=== PATIENT | female | born 1955 | race Caucasian/White ===

== ENCOUNTER 2023-10-13 12:33 | Inpatient (IN) | payer OTHER, SELFPAY ==
[2023-10-13] VITALS (23 sets, daily range): BP systolic 113–208; BP diastolic 72–132; BMI 33.3; BMI 33.0
[2023-10-13 09:51] LABS: Glucose - Point of Care 127 mg/dl (70-99)
--- NOTE | 2023-10-13 10:12 | ED.CVA ---
History of Present Illness
<Neel Durán Jr., PA-C - Last Filed: 10/13/23 12:15>
General
Chief Complaint: CVA/TIA Symptoms
Source: patient and family
Exam Limitations: clinical condition and altered mental status
Time Seen by Provider: 10/13/23 10:02
Nursing documentation reviewed up to this point in time: agreed with
Onset of Stroke Symptoms
Onset of symptoms known: No
Time pt last seen normal is known: Yes
Date last time pt seen normal: 10/12/23
Time last time pt seen normal: 21:00
Travel History
Have you had any contact with someone who has COVID-19?: No
Do you have any symptoms of coronavirus? Fever > 100 degrees, chills, cough, shortness of breath, sore throat, loss of taste or smell, muscle aches, or headache?: No
History of Present Illness
History of Present Illness:
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
expressive aphasia starting this morning. Last seen normal last night at 9 PM roughly 12 hours prior to arrival to the emergency department. Claims that he received a call where she was not making any sense, he immediately went to his home to get
her to the ER. He denies any additional specific symptoms otherwise. She was otherwise well last night.
Past History
<Neel Durán Jr., PA-C - Last Filed: 10/13/23 12:15>
Past History
ED Past Medical History: Other (Hypertension, migraine headaches)
Review of Systems
<Neel Durán Jr., PA-C - Last Filed: 10/13/23 12:15>
Review of Systems
Allergies reviewed?: Yes
All Other Systems: ROS reviewed and negative except as documented in HPI and ROS
Phy Exam
<Neel Durán Jr., PA-C - Last Filed: 10/13/23 12:15>
Physical Exam
Physical Exam:
GENERAL: Alert , in no apparent distress
EYE: pupils equal and reactive
NECK: Supple, no significant adenopathy.
ENT: o/p clr, mmm.
CARDIAC: Regular rate and rhythm .
LUNGS: Clear breath sounds bilaterally, no acute respiratory distress, no wheezes/rales/rhonchi
ABDOMEN: Soft, without focal tenderness, no r/g, no cvat
NEUROLOGICAL: Patient is alert but is not oriented to person place or time. Patient is not able to speak with any direct words. Patient is not able to follow specific directions on exam but she moving her upper and lower extremities with good
strength though she is not following directions with specific movements. She is not able to complete the finger-nose or [id number]. She was able to perform extraocular movements. She was able to smile but not when specifically prompted to. She
was able to puff her cheeks but also not when specifically prompted. When touching either side and was question whether she felt the same bilaterally she seemed to nod in agreement but it was unclear when she was not able to explain her thoughts.
SKIN: Warm and dry, skin intact.
MUSCULOSKELETAL: No edema, well perfused.
PSYCH: Normal and appropriate interaction.
Course
<Neel Durán Jr., PA-C - Last Filed: 10/13/23 12:15>
Orders/Labs/Results
Orders:
Orders
10/13/23 10:04
Electrocardiogram (*1) Urgent
Reason for Study: Other
Other Reason for Exam: Possible Stroke
Cardiac Monitoring- Treatment ONCE
EKG- Treatment ONCE
IV Insert/Care/Rem.- Treatment PRN
Vital Signs As Directed
Frequency: Other
Weight As Directed
Frequency: Once
Comment: ZERO STRETCHER SCALE FOR ACCURATE WEIGHT
10/13/23 10:08
CT Head W/o Cont STROKE ALERT Urgent
Comment:
Reason For Exam: expressive aphasia
CT Head/Neck Ang STROKE ALERT Urgent
Comment:
Reason For Exam: expressive aphasia
10/13/23 10:14
Complete Blood Count/With Diff Urgent
Comprehensive Metabolic Panel Urgent
Keppra (Levetiracetam) [S] Urgent
Troponin I Urgent
10/13/23 10:15
PTT Urgent
Prothrombin Time Urgent
10/13/23 10:23
EEG Routine Urgent
Reason for Exam: ? non convulsive seizure AMS
10/13/23 10:41
Aspirin 325 mg PO NOW STA
10/13/23 11:09
Levetiracetam Injectable [Keppra] 3,000 mg IV NOW STA
Lorazepam [Ativan] 2 mg IV NOW ONE
10/13/23 11:16
Lorazepam [Ativan] 2 mg .ROUTE .STK-MED ONE
10/13/23 11:19
Continuous EEG monitoring IP Routine
Reason for Study: Left sided seizures
0.9% Sodium Chloride [Nss (Preservative Free)] 1 ml IV NOW STA
Neurological Checks As Directed
Frequency: Per unit guidelines
10/13/23 11:20
MR Brain Without Contrast Routine
Comment: Presents with nonconvulsive status epilepticus
Reason For Exam: post ictal changes or new stroke left hemisphere?
Recent pill cam endoscopy?: No
10/13/23 20:00
Levetiracetam Injectable [Keppra] 1,000 mg IV Q12
Abnormal Lab Results
10/13/23 10/13/23
09:50 10:14
Hct 47.5 H %
(37.0-47.0)
MCHC 32.8 L g/dL
(33.0-37.0)
BUN 21 H mg/dl
(7-17)
Glucose 140 H mg/dl
(70-99)
Total Protein 8.4 H g/dl
(6.3-8.2)
Albumin 5.1 H g/dl
(3.5-5.0)
POC Glucose 127 H mg/dl
(70-99)
10/13/23 10:14
10/13/23 10:14
Vital Signs
Initial and Last Documented VS:
Initial Vital Signs
Temp Pulse Resp BP Pulse Ox
98.2 F 75 18 208/116 95
10/13/23 09:49 10/13/23 09:49 10/13/23 09:49 10/13/23 09:49 10/13/23 09:49
Last Documented Vital Signs
Temp Pulse Resp BP Pulse Ox
98.2 F 58 17 137/80 92
10/13/23 09:49 10/13/23 11:50 10/13/23 11:50 10/13/23 11:50 10/13/23 11:50
<Aleksandra Shahid MD - Last Filed: 10/13/23 10:32>
Orders/Labs/Results
Orders:
Orders
10/13/23 10:04
Electrocardiogram (*1) Urgent
Reason for Study: Other
Other Reason for Exam: Possible Stroke
Cardiac Monitoring- Treatment ONCE
EKG- Treatment ONCE
IV Insert/Care/Rem.- Treatment PRN
Vital Signs As Directed
Frequency: Other
Weight As Directed
Frequency: Once
Comment: ZERO STRETCHER SCALE FOR ACCURATE WEIGHT
10/13/23 10:08
CT Head W/o Cont STROKE ALERT Urgent
Comment:
Reason For Exam: expressive aphasia
CT Head/Neck Ang STROKE ALERT Urgent
Comment:
Reason For Exam: expressive aphasia
10/13/23 10:14
Complete Blood Count/With Diff Urgent
Comprehensive Metabolic Panel Urgent
Keppra (Levetiracetam) [S] Urgent
Troponin I Urgent
10/13/23 10:15
PTT Urgent
Prothrombin Time Urgent
10/13/23 10:23
EEG Routine Urgent
Reason for Exam: ? non convulsive seizure AMS
10/13/23 10:41
Aspirin 325 mg PO NOW STA
10/13/23 11:09
Levetiracetam Injectable [Keppra] 3,000 mg IV NOW STA
Lorazepam [Ativan] 2 mg IV NOW ONE
10/13/23 11:16
Lorazepam [Ativan] 2 mg .ROUTE .STK-MED ONE
10/13/23 11:19
Continuous EEG monitoring IP Routine
Reason for Study: Left sided seizures
0.9% Sodium Chloride [Nss (Preservative Free)] 1 ml IV NOW STA
Neurological Checks As Directed
Frequency: Per unit guidelines
10/13/23 11:20
MR Brain Without Contrast Routine
Comment: Presents with nonconvulsive status epilepticus
Reason For Exam: post ictal changes or new stroke left hemisphere?
Recent pill cam endoscopy?: No
10/13/23 20:00
Levetiracetam Injectable [Keppra] 1,000 mg IV Q12
Abnormal Lab Results
10/13/23 10/13/23
09:50 10:14
Hct 47.5 H %
(37.0-47.0)
MCHC 32.8 L g/dL
(33.0-37.0)
BUN 21 H mg/dl
(7-17)
Glucose 140 H mg/dl
(70-99)
Total Protein 8.4 H g/dl
(6.3-8.2)
Albumin 5.1 H g/dl
(3.5-5.0)
POC Glucose 127 H mg/dl
(70-99)
10/13/23 10:14
10/13/23 10:14
Vital Signs
Initial and Last Documented VS:
Initial Vital Signs
Temp Pulse Resp BP Pulse Ox
98.2 F 75 18 208/116 95
10/13/23 09:49 10/13/23 09:49 10/13/23 09:49 10/13/23 09:49 10/13/23 09:49
Last Documented Vital Signs
Temp Pulse Resp BP Pulse Ox
98.2 F 58 17 137/80 92
10/13/23 09:49 10/13/23 11:50 10/13/23 11:50 10/13/23 11:50 10/13/23 11:50
<Neel Durán Jr., PA-C - Last Filed: 10/13/23 12:15>
MDM/Problems Addressed
MDM/Problems Addressed:
68-year-old female presenting to the emergency department today with concerns of aphasia and difficulty with performing directed tasks. The son was contacted at 9 AM today roughly 1 hour prior to arrival with the symptoms and he brought her
immediately to the ER. Here she is having significant expressive aphasia and unable to follow specific commands but does appear to be moving extremities normally. Stroke alert was immediately called. Neurology saw the patient within a few
minutes. No acute findings on CT CT angiogram. Patient was given an aspirin otherwise will be admitted for further treatment and monitoring.
Prior to admission patient did have an EEG while still in the ER. Patient potentially being status, nonconvulsive. Patient was given Ativan as well as Keppra load with improvement. Patient will be admitted for further treatment otherwise.
<ROXANNA Kirk Jr. Last Filed: 10/13/23 12:15>
*Critical Care Note
Total Time (30-74mins, 75-104mins- exclusive of procedures): Not Applicable
ED Attending Note
<ROXANNA Kirk Jr. Last Filed: 10/13/23 12:15>
-
Portions of this chart may have been created with voice recognition software.� Occasional wrong word or��sound alike� substitutions may have occurred due to the inherent limitations of voice recognition software.
<Aleksandra Shahid MD - Last Filed: 10/13/23 10:32>
ED Attending Note
Patient seen and examined by attending physician: Yes
I performed the substantive portion of visit, reviewed & personally made and approve the management plan that is documented in note by myself or CHRISTIN.: Yes
ED Attending Note:
68-year-old female presents emergency department with noted expressive aphasia. Son who she lives with first noticed this at 9 AM. She was last known to be normal sometime last night before she went to bed. We do not have further information
regarding last known normal otherwise. Patient denies chest pain, shortness of breath. She is obviously experiencing expressive aphasia which is mild to moderate, no facial droop, no drift, motor and sensory intact. She is unable to perform
[id number] or [id number]. Stroke alert called, blood pressure noted. Neuro now at bedside. Patient is not a TNK candidate given her history of hemorrhagic stroke in the past. CTA pending.
Discharge Plan
Departure
Patient Disposition: Admit
Date of Disposition: 10/13/23
Time of Disposition: 11:12
Admit to: Telemetry
Admit to doctor: Ben
Presentation/result/management discussed w/ accepting MD/DO: Hospitalist
Patient with high blood pressure during this ER visit?: No
Condition: Good
Covid-19: Not Applicable
Discharge Problem:
Expressive aphasia
Prescriptions:
No Action
hydrochlorothiazide 25 mg tablet
25 mg PO DAILY
losartan 100 mg tablet
100 mg PO DAILY
diltiazem HCl 360 MG capsule,extended release 24hr
360 mg PO DAILY
acetaminophen 325 MG tablet
650 mg PO Q6HPRN PRN (Reason: mild pain) 0RF
Interventions
Interventions:
*Risk Screen - Suicide Last Done: 10/13/23 11:47
*General Assessment Last Done: 10/13/23 11:47
*Neglect/Abuse Screening Last Done: 10/13/23 11:47
*ED COVID-19 Vaccine History Last Done: 10/13/23 11:47
ED- Pulmonary Assessment Last Done: 10/13/23 10:54
ED- Neurological Assessment Last Done: 10/13/23 10:27
Discharge Date and Time
Print Language: TAJIK
--- NOTE | 2023-10-13 10:15 | CON.NEURO4 ---
Addendum entered and electronically signed by Marty Westbrook MD 10/13/23 12:57:
I saw and evaluated the patient I reviewed the note by Vivian Davidson and agree with the findings the following comments:
68-year-old woman with a past medical history of chronic hypertension and previous left occipital intracranial hemorrhage in June 2019 presented to the hospital with acute onset of aphasia that seem to be present for awakening this morning. She
lives with her son and seem to be last normal yesterday evening around 9 to 10 PM. They had gone to the wedding of her other son and patient did have some mild sleep deprivation and possibly some dehydration but no obvious illnesses, she has been
compliant with medications for high blood pressure. History obtained from medical chart and patient's son given patient's aphasia.
Following her left occipital intracranial hemorrhage patient has had some peripheral vision loss but otherwise made a fairly good recovery. She is not taking any antiplatelet medications or blood thinners.
No history of previous episodes of losing consciousness or seizures. No convulsive movements seen.
Blood pressure was greatly elevated to above 180 and in the low 200s systolic but spontaneously improved to the 160s in the ER.
EEG study performed in the ER was supportive of nonconvulsive status epilepticus as a cause of patient's aphasia, patient was given 2 mg IV lorazepam and 3000 mg IV levetiracetam with resolution of the epileptiform activity on EEG.
Neurologic examination shows an awake and alert patient who has a mixed expressive and receptive aphasia, she has great difficulty in general and is not able to comprehend one-step commands, spontaneous speech does show some fluency with an aspect
of receptive aphasia but also has difficulty with naming and repeating. She attempts to count to 10 out loud but has difficulty and will count backwards from 10. She does seem to laugh at my jokes and endorses appreciation of the care we are
providing.
Cranial nerve examination shows normal cranial nerves II through XII although limited pfeiffer, extraocular movements are normal no gaze preference is seen pupils are 3 mm equal round react light light bilaterally, smile symmetric tongue is midline,
no ptosis
Motor examination shows no pronator drift no abnormal movements normal muscle bulk and tone power is 5/5 for shoulder abduction bilaterally
CT head noncontrast shows encephalomalacia from the left occipital lobe previous hemorrhage there is no acute hemorrhage mass or edema or acute infarct seen
CTA of the head and neck with no significant intracranial or cervical area occlusions dissection and no aneurysms seen
EEG reviewed which showed rhythmic delta activity predominantly in the left hemisphere consistent with epileptiform activity.
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 Patient's previous history of left occipital lobe hemorrhage is
probably the ultimate etiology of the seizure activity, and given this chronic lesion does have a significant elevated risk of seizure for the future and most likely has a diagnosis of epilepsy now. New ischemic stroke is felt less likely, as is
hypertensive encephalopathy.
Previous left occipital hemorrhage is cortical-based but given her history of being on 3 antiblood pressure medications is probably due to hypertension, other most likely possibilities and etiology for the previous intracranial hemorrhage would be
amyloid angiopathy.
Recommendations
-Given 2 mg IV lorazepam and 3000 mg loading dose of levetiracetam in the ER
-Levetiracetam 1000 mg every 12 hours IV
-Continuous EEG monitoring
-Will hold off further antiplatelet therapy for the time being given the previous history of intracranial hemorrhage and epileptiform activity as a cause of her aphasia
-Check MRI of the brain without contrast, continuous EEG monitoring will take precedence for today
-Goal normotension would aim for systolic blood pressure maximum less than 180
-Neurologic checks
Time spent evaluating patient, reviewing images and previous images, reviewing EEG, assessing response to seizure medications approximately 80 minutes
Will follow
Original Note:
Documented by User: Vivian Davidson NP 10/13/23 12:39
Consultation - Neurology 4
-
CONSULTING PHYSICIAN: Inessa Westbrook MD
REFERRING PHYSICIAN: ER/Dr. Shahid
DICTATED BY: NIRALI Gautam
DATE/TIME OF REQUEST: 10/13/23
DATE/TIME OF CONSULTATION: 10/13/23
Reason for Consultation: Stroke Alert
History of Present Illness:
This is a 68-year-old female with a PMH of left occipital ICH with residual right peripheral field cut in 2019, HTN, who has presented to the hospital with report of aphasia. Patient presented to in 2019 with severe headache, vomiting,
dizziness. She was found to have a right homonymous hemianopia and CT head demonstrated a large left occipital ICH. Patient was transferred urgently to [facility], she did not require surgical intervention. She was on Keppra for a few weeks following her
ICH for seizure prophylaxis, her son reports that she never had a witnessed seizure. Patient still has a peripheral right field cut as a residual deficit but otherwise returned to her baseline.
Patient lives with her spouse and one of her sons. Her son at bedside reports that he saw her this morning and she was in her usual state between [id number] before he left for work. At 0930 she called him and he reports that kept saying that she
just 'didn't feel well.' He returned home and noted that her words were not making sense and she seemed confused, prompting him to bring her to the ER for evaluation. A stroke alert was activated in triage. Blood pressure 208/[address] head
and CTA head/neck were obtained and are negative for any acute abnormalities. MARIAN a full ROS due to significant aphasia but patient denies any headache. Patient was not a candidate for TNK/IAT due to history of ICH and no LVO. She was loaded with a
full dose aspirin due to concern for ischemic stroke. Urgent EEG was then obtained and demonstrates that the patient is in non-convulsive status epilepticus. Patient was loaded with lorazepam 2mg and levetiracetam 3000mg x1. Patient's son reports
that a sibling got this past weekend and the patient has been stressed and not sleeping well leading up to this event.
Past Medical History: Left occipital ICH 2019, HTN, HLD, migraines
Surgical History: Denies.
Family History: Reviewed and noncontributory.
Social History: Former smoker. Denies alcohol and illicit drug use.
Allergies: Amoxicillin.
Home Medications: See below.
Review of Symptoms:
Per the HPI. I am unable to obtain a complete review of systems�because of patient's inability to provide history.
Physical Exam:
The patient is afebrile, abdomen is nondistended, breathing is unlabored, skin is warm and dry, LLE +1 pedal edema.
NIH Stroke Scale:
I performed the NIH stroke scale on the patient on 10/13/23 at 1030. The patient scored 5 points on the NIH stroke scale assessment, which were assigned as follows: See below.
Neurologic Examination:
The patient is awake and alert. MARIAN oriented due to global aphasia. She is able to mimic commands, can only follow a rare verbal command. There is global aphasia, word salad. No dysarthria. On cranial nerve assessment, pupils are 3 mm bilateral,
round and reactive to light and accommodation. Visual pfeiffer are somewhat reduced on the right side, challenging to assess due to aphasia. Extraocular movements are intact. Facial sensations are intact and bilaterally symmetrical, there is no facial
asymmetry. Hearing is intact bilaterally to normal conversation volume. Tongue palate and uvula are midline. Motor strengths are 5/5 bilateral upper and lower extremities on medical research [place] scale. There is no drift or involuntary movement
noted. Deep tendon reflexes are 1+ bilateral upper and lower extremities and Babinski is absent bilaterally. MARIAN sensation and DBS, and coordination due to aphasia.
Lab Results: See below.
Neuro Imaging:
1. CT Head 10/13/23: No acute intracranial abnormality. Region of encephalomalacia within the posterior left parietal lobe with associated ex vacuo dilatation the posterior horn of the lateral ventricle. Moderate nonspecific white matter disease.
2. CTA Head /Neck 10/13/23: No large vessel occlusions or dissections appreciated. Proximal segments of the left vertebral artery not visualized, obscured by contrast artifact. The distal left vertebral artery appears patent with the basilar artery
supplied by the dominant right vertebral artery. Minimal calcified plaque within both carotid bulb/proximal ICAs.
Differentials for the patient's presentation include:
1. Non-convulsive status-epilepticus likely producing speech change in a patient with a large scar on her brain from previous ICH.
2. Low concern for left hemisphere ischemic stroke producing aphasia but possible.
3. Hypertensive encephalopathy possibly contributing to symptoms.
4. CT head negative for hemorrhage.
Patient has the following risk factors for their symptoms: Hx large ICH, recent stress/sleep deprivation, HTN, HLD, migraines
IV Tenecteplase/IAT candidacy: Not a candidate due to hx ICH, no LVO for IAT.
Recommendations:
-Continuous EEG ordered.
-Continue levetiracetam 1000mg IV q12hrs.
-Discontinue aspirin.
-MRI brain noncontrast pending.
-Neurological checks per unit guidelines.
-Seizure precautions.
-Checking blood work for metabolic abnormalities.
-DVT prophylaxis.
-Will follow.
Discussed patient care with: Dr. Westbrook, the patient, patient's son
Vital Signs and Labs
-
Vital Signs and Labs:
Vital Signs
Temp Pulse Resp BP Pulse Ox
98.2 F 70 10 188/92 97
10/13/23 09:49 10/13/23 10:00 10/13/23 10:00 10/13/23 10:00 10/13/23 10:00
Medications
-
Home Medications
�Medication �Instructions �Recorded
acetaminophen 325 mg tablet 650 mg (2 x 325 mg) PO Q6HPRN PRN 06/29/19
mild pain
diltiazem HCl 360 mg 360 mg PO DAILY ##30 06/29/19
capsule,extended release 24 hr
hydrochlorothiazide 25 mg tablet 25 mg PO DAILY 10/13/23
losartan 100 mg tablet 100 mg PO DAILY 10/13/23
NIH Stroke Score
Subsequent NIH Scale
Date of Subsequent NIH Scale: 10/13/23
Time of Subsequent NIH Scale: 10:30
NIH Stroke Score
Level of Consciousness: 0 - Alert
LOC Questions: 2-Neither correct
LOC Commands: 0-Performs both correctly
Best Horizontal Gaze: 0-Normal
Visual Pfeiffer: 1=Partial hemianopia
Facial Palsy: 0=Normal, symmetrical
Motor - Right Arm: 0=No drift 10 seconds
Motor - Left Arm: 0=No drift 10 seconds
Motor - Right Le-No drift 5 seconds
Motor - Left Le-No drift 5 seconds
Limb Ataxia: 0-Absent
Sensation: 0-Normal
Best Language: 2-Severe aphasia
Dysarthria: 0-Normal
Extinction and Inattention: 0-No abnormality
Total Score:: 5
Alteplase Contraindication
Inclusion and Exclusion criteria reviewed: Yes
Reasons for NON-Tx with Thrombolytics ABSOLUTE Exclusions: History of ICH
IAT Contraindications: Imaging doesn't show large vessel occlusion as cause of stroke

Documented by User: Marty Westbrook MD 10/13/23 12:45
NIH Stroke Score
NIH Stroke Score
Total Score:: 5
[2023-10-13 10:27] LABS: % Basophils 0.4 % (0-2); % Eosinophils 0.5 % (0-6); % Immature Granulocytes 0.3 % (0-0.5); % Lymphocytes 24.1 % (20.5-51.1); % Monocytes 6.3 % (1.7-9.3); % Neutrophils 68.4 % (42.2-75.2); Absolute Lymphocytes 1.8 10^3/uL (1.2-3.4); Absolute Monocytes 0.5 10^3/uL (0.1-0.6); Absolute Neutrophils 5.2 10^3/uL (1.4-6.5); Hematocrit 47.5 % (37.0-47.0); Hemoglobin 15.6 g/dL (12.0-16.0); Mean Corp Hgb Conc. 32.8 g/dL (33.0-37.0); Mean Corpuscular Hgb 29.6 pg (27.0-31.0); Mean Corpuscular Volume 90.1 fL (81.0-99.0); Mean Platelet Volume 9.7 fL (7.4-10.4); Nucleated Red Blood Cells % 0 %; Platelet Count 263 10^3/uL (130-400); Red Blood Cell Count 5.27 10^6/uL (4.20-5.40); Red Cell Dist. Width 13.2 % (11.5-14.5); White Blood Cell Count 7.6 10^3/uL (4.8-10.8)
[2023-10-13 10:44] LABS: ALT (SGPT) 22 U/L (0-35); AST (SGOT) 26 U/L (14-36); Albumin 5.1 g/dl (3.5-5.0); Alkaline Phosphatase 88 U/L (38-126); Blood Urea Nitrogen 21 mg/dl (7-17); Calcium 9.8 mg/dl (8.4-10.2); Carbon Dioxide 24 mmol/L (22-30); Chloride 103 mmol/L (98-107); Estimated Creatinine Clearance 112 ml/min; Glucose 140 mg/dl (70-99); Potassium 3.8 mmol/L (3.5-5.1); Sodium 141 mmol/L (135-145); Total Bilirubin 0.8 mg/dl (0.2-1.3); Total Protein 8.4 g/dl (6.3-8.2); eGFR > 60.00
[2023-10-13 10:51] LABS: Troponin I < 0.012 ng/ml
[2023-10-13 10:53] LABS: INR 1.07; PT 13.8 Sec (11.4-14.6)
[2023-10-13 10:54] LABS: APTT 29.8 Sec (23.4-35.0)
--- NOTE | 2023-10-13 11:17 | HPS.HSE ---
Family Physician
-
Family Physician:
Chief Complaint
-
Expressive aphasia
History of Present Illness
68-year-old with history of IC bleed presents to the ER with expressive aphasia. Son noted this. She was seen around 9 PM last night with no abnormalities. She called her but was not making much of a sense. Which prompted him to send her to the
ER
Medical History
Past Medical History
Past Medical History: Reports Other
Additional Past Medical History:
Migraines, history of IC bleed, hypertension
Past Surgical History: Reports None
Social History
Tobacco: Non-smoker
Alcohol: None
Drug: None
Personal: Single
Employment: Retired
Family History
Family History: CAD (mom) and Cancer (Leukemia-dad)
Allergies / Home Medications
Allergies reflects when Allergies were last updated in [facility].
Home Medications with original date entered in [facility]
Allergy/Medication List:
Allergies
Allergy/AdvReac Type Severity Reaction Status Date / Time
amoxicillin Allergy Mild Rash Verified 10/13/23 09:48
Home Medications
acetaminophen 325 mg tablet 650 mg (2 x 325 mg) PO Q6HPRN PRN mild pain 06/29/19
diltiazem HCl 360 mg capsule,extended release 24 hr 360 mg PO DAILY Blood Pressure 10/13/23
hydrochlorothiazide 25 mg tablet 25 mg PO DAILY Blood Pressure 10/13/23
losartan 100 mg tablet 100 mg PO DAILY Blood Pressure 10/13/23
Review of Systems
-
A 12 point ROS was completed and negative except as noted: Yes
Respiratory: Denies Trouble Breathing
Cardiac: Denies Chest Pain
Neurological: Denies Headache
Physical Exam
Vital Signs
Vital Signs
Temp Pulse Resp BP Pulse Ox
98.2 F 82 20 167/95 92
10/13/23 09:49 06/10/24 10:45 10/13/23 10:45 10/13/23 10:32 10/13/23 10:45
Physical Exam
General: Comfortable
Respiratory: Clear
Cardiac: S1/S2 and Regular Rhythm
GI: Soft and Normal Bowel Sounds
Skin: Warm
Neuro: Awake, Alert, No Motor Deficits, Cranial Nerves Intact and Other (expressive aphasia)
Laboratory Results
-
10/13/23 10:14
10/13/23 10:14
Laboratory Results
PT 13.8 Sec (11.4-14.6) 10/13/23 10:15
INR 1.07 10/13/23 10:15
APTT 29.8 Sec (23.4-35.0) 10/13/23 10:15
Total Bilirubin 0.8 mg/dl (0.2-1.3) 10/13/23 10:14
AST 26 U/L (14-36) 10/13/23 10:14
ALT 22 U/L (0-35) 10/13/23 10:14
Alkaline Phosphatase 88 U/L (38-126) 10/13/23 10:14
Troponin I < 0.012 ng/ml 10/13/23 10:14
Data Reviewed
-
CT Scan: Report Reviewed by me (CTA-no large vessel occlusion. Proximal segments of the left vertebral artery not visualized. Distal left vertebral artery appears patent with the basilar artery supplied by the dominant right vertebral artery.
Minimal calcific plaques both carotid bulbs and proximal ICA)
Medical Tests (Nuc Med, Echo, EKG etc): Image Personally Visualized and interpreted (EKG-sinus rhythm, left axis deviation, incomplete left bundle branch block)
Impression/Plan
-
IMPRESSION/PLAN:
# Expressive aphasia
Appreciate neurology input
EEG showed nonconvulsive status epilepticus
Patient given Ativan and also started on Keppra after loading Keppra
Continue Keppra 1 g twice daily
MRI of the brain without contrast per neurology
Admit to IMU for monitoring
Neurochecks
# Hypertension-on losartan/hydrochlorothiazide, diltiazem as outpatient
Permissive hypertension up to 180 mmHg per discussion with neurology
Continue above medicines
# History of IC bleed-and hypertensive reasons per son at bedside
Was on Keppra for 1 year and then stopped by neurology
This was in 2019
# Hyperglycemia-check hemoglobin A1c
# DVT prophylaxis-subcutaneous heparin
Full code
Discussed with ER staff
Discussed with neurology at bedside
Discussed with patient's son at bedside
[2023-10-13] MEDS: KEPPRA 3000 MG IV (11:28)
[2023-10-13] MEDS: ATIVAN 2 MG IV (11:29)
[2023-10-13] MEDS: NSS (PRESERVATIVE FREE) 1 ML IV (11:32)
[2023-10-13 14:42] LABS: Glycohemoglobin (HgbA1c) 5.9 % (4.0-5.6)
--- NOTE | 2023-10-13 18:04 | PTCARENOTE ---
Received patient into room 3345 from the ED. She is aaox3, able to have oriented conversation. She still has slight expressive aphasia but much better than in the ED per nurse. Her neuro exam is unremarkable, see flowsheet. EEG hooked back up by
tech. at bedside. She has no complaints at this time. Assessment, care and VS as charted.
[2023-10-13] MEDS: KEPPRA 1000 MG IV (20:46)
[2023-10-13] MEDS: HEPARIN 5000 UNITS SC (20:46)
[2023-10-13] MEDS: SENOKOT 8.59999999999999964 MG PO (20:47)
[2023-10-14] VITALS (15 sets, daily range): BP systolic 116–168; BP diastolic 71–110; PULSE 80–82; O2SAT 96; BMI 30.2
[2023-10-14 05:22] LABS: Hematocrit 43.7 % (37.0-47.0); Mean Corp Hgb Conc. 34.3 g/dL (33.0-37.0); Mean Corpuscular Hgb 29.7 pg (27.0-31.0); Mean Corpuscular Volume 86.5 fL (81.0-99.0); Mean Platelet Volume 9.2 fL (7.4-10.4); Platelet Count 246 10^3/uL (130-400); Red Blood Cell Count 5.05 10^6/uL (4.20-5.40); Red Cell Dist. Width 13.2 % (11.5-14.5); White Blood Cell Count 4.7 10^3/uL (4.8-10.8)
--- NOTE | 2023-10-14 05:42 | PTCARENOTE ---
Received pt at change of shift. Neuro checks performed Qshift. EEG monitoring in place throughout the night. Pt utilizing BSC with a standby assist; ringing appropriately. Minimal expressive aphasia noted. Pt denies any receptive aphasia. Pt
drowsy but able to hold a conversation. Resting in bed with call washburn in reach.
[2023-10-14 05:48] LABS: Blood Urea Nitrogen 15 mg/dl (7-17); Calcium 9.6 mg/dl (8.4-10.2); Carbon Dioxide 24 mmol/L (22-30); Chloride 106 mmol/L (98-107); Estimated Creatinine Clearance 107 ml/min; Glucose 100 mg/dl (70-99); Magnesium 2.1 mg/dl (1.6-2.3); Potassium 3.8 mmol/L (3.5-5.1); Sodium 139 mmol/L (135-145); eGFR > 60.00
[2023-10-14 06:36] LABS: Vitamin B12 252 pg/ml (239-931)
--- NOTE | 2023-10-14 07:36 | EEG.RPT ---
Electroencephalogram Report
Recording
Date of EE10/13/23
Length of EEG recordin minutes
Done with Video Recording: Yes
Patient Status: Inpatient
Recording Conditions: Awake and Drowsy
Hyperventilation Performed: No
Photic Stimulation Performed: Yes
Hand Dominance: Unknown
Report
LESS THAN 1 HOUR EEG REPORT
EEG Interpretation
Severely abnormal EEG notable for asymmetry and continuous epileptiform changes in the left hemisphere
CLINICAL CORRELATION:
In the appropriate clinical context this EEG may be compatible with non-convulsive status epilepticus.
Immediate clinical correlation required.
METHODS:
A 21 channel digitized electroencephalogram (EEG) was performed at the bedside in the intensive care unit. The 10/20 international system of electrode placement was used. ECG was monitored. Persyst quantitative analysis was performed. Study
lasted 21 minutes.
ELECTROENCEPHALOGRAPHER IMPRESSION(S):
Quality
Good
Background, predominantly alpha and beta
Amplitude: Medium
Anterior-posterior gradient: Fair
Asymmetry: Left hemisphere markedly asymmetric with rhythmic delta frequency at 2-3 Hz
Photic stimulation
Not performed
Hyperventilation
Not performed
Sleep
Not demonstrated
Abnormal EEG activity
Continuous left hemisphere rhythmic delta activity consistent with epileptiform dishcarges
--- NOTE | 2023-10-14 07:40 | EEGC.RPT ---
Continuous EEG Report
Recording
Start Date of Data Reviewed: 10/13/23
Start Time of Data Reviewed: 11:25
End Date of Data Reviewed: 10/14/23
End Time of Data Reviewed: 07:00
Type of EEG: Continuous
Study Sequence: Initiation of Study
Report
24 HOUR CONTINUOUS EEG REPORT
24 HOUR CONTINUOUS EEG INTERPRETATION:
Beginning of the study showing left hemisphere rhythmic discharges suggestive of non-convulsive status epilepticus, these abort with 2 mg of Lorazepam
CLINICAL CORRELATION:
This study was supportive of left hemispheric non-convulsive status epilepticus which aborted with administration of Lorazepam.
Clinical correlation is advised.
METHODS:
A 21 channel digitized electroencephalogram (EEG) was performed at the bedside in the intensive care unit. The 10/20 international system of electrode placement was used. ECG was monitored. Persyst quantitative analysis was performed. Study lasted
approximately 8 hours 35 minutes
ELECTROENCEPHALOGRAPHER IMPRESSION(S):
Quality
Good
Background, predominantly alpha and beta
Amplitude: Medium
Anterior-posterior gradient: Fair
Asymmetry: Left hemisphere markedly asymmetric with rhythmic delta frequency at 2-3 Hz
Photic stimulation
Not performed
Hyperventilation
Not performed
Sleep
Not demonstrated
Abnormal EEG activity
Continuous left hemisphere rhythmic delta activity consistent with epileptiform discharges, these discharges disappear approximately 1 minute after 2 mg IV Lorazepam is administered at 11:33 AM
[2023-10-14] MEDS: CARDIZEM CD 360 MG PO (08:12)
[2023-10-14] MEDS: MIRALAX 17 GRAMS PO (08:13)
[2023-10-14] MEDS: ORETIC 25 MG PO (08:13)
[2023-10-14] MEDS: KEPPRA 1000 MG IV ×2 (08:13→19:59)
[2023-10-14] MEDS: FLUSH (NSS) 1 FLUSH IV (08:13)
[2023-10-14] MEDS: HEPARIN 5000 UNITS SC ×2 (08:14→19:59)
[2023-10-14] MEDS: TYLENOL 650 MG PO ×2 (08:40→16:16)
[2023-10-14] MEDS: SENOKOT PO ×2 (08:50→20:06)
[2023-10-14] MEDS: COZAAR 100 MG PO (09:01)
--- NOTE | 2023-10-14 09:19 | W.PN.HOSP.TC ---
Addendum entered and electronically signed by Angeles Jeong MD 10/14/23 09:25:
No SZ on EEG overnight
Original Note:
Today's Communication/Plan
-
Transfer to tele
MRI today
PT OT
Discharge planning will be per neuro recommendations
Assessment / Plan
Assessment / Plan
feels well.
She Still feels speech is slightly abnormal.
But pt is AAO3
No Cranial nerve deficits or motor deficits
CVS: S1-S2 normal
Chest: CTA B/L
Abdomen: Soft, NT / Bowel sounds present
Extremities: No edema
# Expressive aphasia
Appreciate neurology input
EEG showed nonconvulsive status epilepticus
Patient given Ativan and also started on Keppra after loading Keppra
Continue Keppra 1 g twice daily
MRI of the brain without contrast today
Neurochecks
She looks much better
# Hypertension-on losartan/hydrochlorothiazide, diltiazem as outpatient
Continue above medicines
# History of IC bleed-and hypertensive reasons per son at bedside
Was on Keppra for 1 year and then stopped by neurology
This was in 2019
# Hyperglycemia-Hemoglobin A1c 5.9
# DVT prophylaxis-subcutaneous heparin
# Full code
D/W at bed side
D/W RN at bed side
Anticipated Discharge: Within 24 hours
Subjective/Interval History
-
Date of Service: October 14, 2023
Objective Data
-
Labs:
Laboratory Results
10/14/23 10/14/23
05:13 05:14
WBC 4.7 L
Hgb 15.0
Hct 43.7
Plt Count 246
Sodium 139
Potassium 3.8
Chloride 106
Carbon Dioxide 24
BUN 15
Creatinine 0.6
Glucose 100 H
Calcium 9.6
Vital Signs:
Vital Signs
Temp Pulse Resp BP Pulse Ox
97.8 F 92 20 145/96 93
10/14/23 03:59 10/14/23 07:10 10/14/23 07:10 10/14/23 07:10 10/14/23 07:00
[2023-10-14] MEDS: NSS (PRESERVATIVE FREE) 0.25 ML IV (09:28)
[2023-10-14] MEDS: ATIVAN 0.5 MG IV (09:29)
--- NOTE | 2023-10-14 09:36 | W.PN.NEURO.1 ---
Addendum entered and electronically signed by Power Luis MD 10/14/23 15:39:
Patient will be reported to [facility]. This was reviewed with her..
Original Note:
Today's Communication / Plan
-
Levetiracetam 1000 mg every 12 hours, lifelong
Goal normotension would aim for systolic blood pressure maximum less than 180
Consider repeated EEG if patient has decline in cognition again
Neuro Assessment/Plan
Assessment
CT head noncontrast shows encephalomalacia from the left occipital lobe previous hemorrhage there is no acute hemorrhage mass or edema or acute infarct seen
CTA of the head and neck with no significant intracranial or cervical area occlusions dissection and no aneurysms seen
EEG reviewed which showed rhythmic delta activity predominantly in the left hemisphere consistent with epileptiform activity.
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
Patient's previous history of left occipital lobe hemorrhage is probably the ultimate etiology of the seizure activity, and given this chronic lesion does have a significant elevated risk of seizure for the future and most likely has a diagnosis of
epilepsy now.
Previous left occipital hemorrhage is cortical-based but given her history of being on 3 antihypertensive pressure medications is probably due to hypertension
Plan
Recommendations
Levetiracetam 1000 mg every 12 hours, lifelong
Goal normotension would aim for systolic blood pressure maximum less than 180
Consider repeated EEG if patient has decline in cognition again
Will follow as outpatient
Subjective/Objective
Subjective Data
Date of Service: October 14, 2023
Confusion remains, although patient feels approximately 90% improved.
Objective Data
Vital Signs
Temp Pulse Resp BP Pulse Ox
36.6 C 72 13 168/110 92
10/14/23 03:59 10/14/23 09:00 10/14/23 09:00 10/14/23 08:00 10/14/23 09:00
Lab Results
10/14/23 05:14
10/14/23 05:13
PT 13.8 Sec (11.4-14.6) 10/13/23 10:15
INR 1.07 10/13/23 10:15
APTT 29.8 Sec (23.4-35.0) 10/13/23 10:15
Sodium 139 mmol/L (135-145) 10/14/23 05:13
Potassium 3.8 mmol/L (3.5-5.1) 10/14/23 05:13
BUN 15 mg/dl (7-17) 10/14/23 05:13
Glucose 100 mg/dl (70-99) H 10/14/23 05:13
Calcium 9.6 mg/dl (8.4-10.2) 10/14/23 05:13
Vitamin B12 252 pg/ml (239-931) 10/14/23 05:13
Patient Allergies
amoxicillin Allergy (Mild, Verified 10/13/23 09:48)
Rash
Review of Systems
-
History Source: Patient
All other systems: Reviewed and negative
Neuro: Headache; Negative Dizzy
Physical Exam
-
General: No Apparent Distress and Appears Stated Age
Eyes: Round OU, Brady Conjunctivae and No Ptosis
HEENT: Anicteric and Moist Mucous Membranes
Neck: Full Range of Motion
Respiratory: No Dyspnea
Cardiac: No JVD
Skin: Unremarkable
Extremities: No Clubbing, No Cyanosis and No Edema
Psych: Intact Judgement/Insight
Extended Neurological Exam
Mood & Affect: Mood Unremarkable and Affect Unremarkable
Attention Span & Concentration: Awake, Alert and Interactive
Memory: Unremarkable
Tremor: Hand Tremor Absent and Head Tremor Absent
Speech: Quality Unremarkable and Quantity Unremarkable
Cranial Nerve II: Left Eye: Pupillary Size Unremarkable and Visual Pfeiffer Reduced (On the right)
Cranial Nerve II: Right Eye: Pupillary Size Unremarkable and Visual Pfeiffer Reduced (On the right)
Cranial Nerves III, IV, : Extraocular Movement: Extraocular Movement Full in all Directions
Cranial Nerve VII: Facial Symmetry: Normal Facial Symmetry
Cranial Nerve VIII: Hearing: Unremarkable Hearing to Normal Conversational Volume
Muscle Strength, Overall: Spontaneously Moves (All extremities)
Muscle Bulk & Tone: Bulk Unremarkable and Tone Unremarkable
Touch Sensation: Unremarkable
Coordination: Reaches for Objects without Difficulty
Data Reviewed
-
EEG: Report Reviewed
Labs: Report Reviewed
Reviewed with: Physician, Nurse, Patient and Family
Old Records: Summarized
--- NOTE | 2023-10-14 10:26 | PTCARENOTE ---
Patient off unit having MRI of brain.
--- NOTE | 2023-10-14 10:54 | PTCARENOTE ---
Patient complaining of left sided headache rating 4/10. Medicated patient with tylenol with adequate results.
[2023-10-14 12:10] LABS: Keppra (Levetiracetam) <2 ug/mL (10-40)
--- NOTE | 2023-10-14 15:45 | PTCARENOTE ---
Report given to Charmaine RESENDIZ. Patient transferred to [address] [place] [address] bed 2. All belongings with the patient.
[2023-10-14] MEDS: VITAMIN B-12 1000 MCG PO (16:16)
[2023-10-15 03:15] VITALS: BP 131/83
[2023-10-15 07:00] VITALS: BP 141/85
[2023-10-15] MEDS: MIRALAX 17 GRAMS PO (07:54)
[2023-10-15] MEDS: KEPPRA 1000 MG IV (07:56)
[2023-10-15] MEDS: HEPARIN 5000 UNITS SC (07:57)
[2023-10-15] MEDS: VITAMIN B-12 1000 MCG PO (07:57)
[2023-10-15] MEDS: ORETIC 25 MG PO (07:57)
[2023-10-15] MEDS: COZAAR 100 MG PO (07:57)
[2023-10-15] MEDS: CARDIZEM CD 360 MG PO (07:57)
[2023-10-15] MEDS: SENOKOT PO ×2 (07:57→08:02)
[2023-10-15 11:00] VITALS: BP 145/88
--- NOTE | 2023-10-15 11:06 | W.PN.HOSP.TC ---
Today's Communication/Plan
-
dc
Assessment / Plan
Assessment / Plan
# Expressive aphasia suspected to nonconvulsive status epilepticus which is now resolved.
EEG showed nonconvulsive status epilepticus
Patient given Ativan and also started on Keppra after loading Keppra
Continue Keppra 1 g twice daily
MRI of the brain without contrast Shows no evidence of acute infarct but chronic changes noted
patient back to his usual self without seizures. Discussed with neurology okay for discharge on Keppra. Patient advised not to drive. She is also aware neurology would inform [employer]. She was told that she needs at least 6 months of treatments
prior to resumption of driving. She has to follow-up with the neurology and [place] doctor. This was discussed with present at bedside
# Hypertension-on losartan/hydrochlorothiazide, diltiazem as outpatient
Continue above medicines
# History of IC bleed-and hypertensive reasons per son at bedside
Was on Keppra for 1 year and then stopped by neurology
This was in 2019
# Hyperglycemia-Hemoglobin A1c 5.9
# DVT prophylaxis-subcutaneous heparin
# Full code
D/W at bed side
DC home today
Total time of dc 32 min
Anticipated Discharge: Today
Subjective/Interval History
-
Date of Service: October 15, 2023
No further seizures. She says she is back to her usual self which is corroborated by at bedside.
Objective Data
-
Vital Signs:
Vital Signs
Temp Pulse Resp BP Pulse Ox
97.7 F 62 16 145/88 97
10/15/23 11:00 10/15/23 11:00 10/15/23 11:00 10/15/23 11:00 10/15/23 11:00
I&O
10/14/23 10/15/23 10/16/23
06:59 06:59 06:59
Intake Total 960 / 960
Balance 960 96
Review of Systems
-
Respiratory: Denies Trouble Breathing
Cardiac: Denies Chest Pain
Abdomen/GI: Denies Nausea or Vomiting
Neuro: Denies Dizzy, Headache, Weakness, Numbness, Ataxia, Tremors or Seizures
Physical Exam
-
General: Comfortable
Respiratory: Non Labored Respirations; Negative Accessory Resp Muscle Use
Cardiac: Regular Rhythm and S1/S2
Neuro: AO x 3; Negative No Motor Deficits, Tremors, Slurred Speech or Facial Droop
Psych: Calm; Negative Confused or Agitated
--- NOTE | 2023-10-15 11:13 | W.DS.TRANS ---
DC Summary - Processing Supervisor
-
Discharge Instructions:
Discharge Diagnosis/Procedures expressive aphasia from nonconvulsive status
epilepticus without evidence of acute stroke
Diet 2 Gram Sodium
Activity As tolerated
Driving Restrictions No driving
Instructions:
Stand-Alone Forms:
Changes to Home Medications: Yes
Discharge Medications:
DC Medications w/original date entered in [facility]
acetaminophen 325 mg tablet 650 mg (2 x 325 mg) PO Q6HPRN PRN mild pain 06/29/19
diltiazem HCl 360 mg capsule,extended release 24 hr 360 mg PO DAILY Blood Pressure 10/13/23
hydrochlorothiazide 25 mg tablet 25 mg PO DAILY Blood Pressure 10/13/23
losartan 100 mg tablet 100 mg PO DAILY Blood Pressure 10/13/23
levetiracetam 1,000 mg tablet (Keppra) 1,000 mg PO BID #60 tabs 10/15/23
Home Medication Changes
new medication-Keppra
Pending Results: No
--- NOTE | 2023-10-15 13:16 | CM ---
Alert awake oriented patient who lives with her Larry who lives in a 2 story home with 1 step to enter and 12 steps to bed and bathroom. She is independent in driving and in all activities of daily living.She was offered VN she declined
need.No Adaptive devices.
No VN hx / No SNF history
Pharmacy [facility] [place]
PCP DR Dunlap
PLAN Home Declined VN
--- NOTE | 2023-10-15 17:36 | W.DCSUMMARY ---
Discharge Summary
Discharge Data
Date of Admission: 10/13/23
Date of Discharge: 10/15/23
-
Pending Results: No
Hospital Course
Primary diagnosis:
Expressive aphasia secondary to new onset of nonconvulsive status epilepticus
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
Small chronic infarct in the paramidline right parietal-occipital lobe.
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
Secondary diagnosis:
History of intracerebral bleed
Hypertension primary
Hospital course:
Patient with above history presented with new onset of expressive aphasia, on further evaluation noted to have nonconvulsive status epilepticus on the EEG which was aborted with benzodiazepines. MRI of the brain showed no evidence of acute infarct
but chronic changes as above which might be precipitating seizure. She recently was attending a wedding unclear if there is any sleep disturbances or stress.
In view of above findings and nonconvulsive status epilepticus she was started on Keppra which she will continue. Advised not to drive and [employer] will be notified by neurology.
There was no recurrence of seizures further on in the hospital.
Consultants on board:
Neurology-Marty Aragon
Discharge Plan
-
Patient Disposition: Home (Routine Discharge)
Discharge Diagnosis/Procedures: expressive aphasia from nonconvulsive status epilepticus without evidence of acute stroke
Diet: 2 Gram Sodium
Activity: As tolerated
Driving Restrictions: No driving
Referrals:
Marty Westbrook MD [Active] - in four to six weeks
Marty Dunlap DO [Family Provider] - in less than 1 week
Prescriptions:
New
levetiracetam [Keppra] 1,000 mg tablet
1,000 mg PO BID Qty: 60 0RF
Continued
hydrochlorothiazide 25 mg tablet
25 mg PO DAILY
losartan 100 mg tablet
100 mg PO DAILY
diltiazem HCl 360 MG capsule,extended release 24hr
360 mg PO DAILY
acetaminophen 325 MG tablet
650 mg PO Q6HPRN PRN (Reason: mild pain) 0RF
Discharge Orders:
Discharge Patient (As Directed); Ordered 10/15/23
Ordered By: Cole Contreras
Discharge Date and Time
Discharge Date/Time: 10/15/23 12:10
Print Language: GABONESE
[2023-10-16 13:58] LABS: Lyme Antibody Screen, EIA Negative (Negative)
== END 2023-10-15 12:10 | disposition home or self-care (01) | DRG 101 ==
LOC: 3 WEST ACU 12:33
PROVIDERS: Physician Assistant; ADMITTING PHYSICIAN Hospitalist; ATTENDING PHYSICIAN Internal Medicine; CONSULT PHYSICIAN Student in an Organized Health Care Education/Training Program; EMERGENCY PHYSICIAN Emergency Medicine; FAMILY PHYSICIAN Family Medicine
DX: G40.901 Epilepsy, unspecified, not intractable, with status epilepticus (principal); R47.01 Aphasia; I67.81 Acute cerebrovascular insufficiency; G43.909 Migraine, unspecified, not intractable, without status migrainosus; I10 Essential (primary) hypertension; R73.9 Hyperglycemia, unspecified; H53.461 Homonymous bilateral field defects, right side; E78.5 Hyperlipidemia, unspecified; G93.89 Other specified disorders of brain; Z87.891 Personal history of nicotine dependence; Z86.73 Personal history of transient ischemic attack (TIA), and cerebral infarction without residual deficits; Z88.0 Allergy status to penicillin
CPT/HCPCS: 70450; 70496; 70498; 70551; 80048; 80053; 80177; 82607; 82962; 83036; 83735; 84484; 85025; 85027; 85610; 85730; 86618; 92507; 92523; 93005; 95714; 95816; 96374; 96375; 97162; 97166; 99285; Q9967

== ENCOUNTER → 2023-11-26 10:50 | Outpatient (REF) | payer OTHER, SELFPAY ==
--- NOTE | 2023-11-26 12:50 | EEG.RPT ---
Addendum entered and electronically signed by Marty Westbrook MD 11/26/23 13:05:
Addendum: On background, there is some focal slowing in the left occipital area at P3/O1 likely due to focal structural abnormality in this area, most likely due to the left occipital/parietal chronic ischemic infarction seen on brain imaging.
Original Note:
Electroencephalogram Report
Recording
Date of EE11/26/23
Type of EEG: Routine
Length of EEG recordin hour 4 minutes
Patient Status: Outpatient
Recording Conditions: Awake and Drowsy
Hyperventilation Performed: Yes
Photic Stimulation Performed: Yes
Report
GREATER THAN 1 HOUR EEG REPORT
GREATER THAN 1 HOUR EEG INTERPRETATION:
Unremarkable EEG for age
CLINICAL CORRELATION:
A normal EEG does not rule out a diagnosis of epilepsy.� If clinical suspicion for seizure persists, a prolonged recording may be warranted.
Clinical correlation is advised.
METHODS:
A 21 channel digitized electroencephalogram (EEG) was performed using the 10/20 international system of electrode placement and one-lead of ECG recorded. Duration 1 hour 4 minutes
ELECTROENCEPHALOGRAPHER IMPRESSION(S):
Quality of study
Good
Background
Normal medium amplitude of theta and alpha frequencies in awake and drowsy stats
Normal posterior dominant rhythm of 9 hz seen which attenuates with eye opeing
There were no significant asymmetries of background activity noted.
Sleep
Drowsiness present
Photic Stimulation
No activation
Hyperventilation
No activation
ECG
Normal sinus rhythm
Abnormalities
No significant abnormalities seen, no seizures or interictal epileptiform dishcarges seen
== END ==
LOC: EEG 10:50
PROVIDERS: ATTENDING PHYSICIAN Psychiatry & Neurology Neurology; FAMILY PHYSICIAN Family Medicine
DX: R56.9 Unspecified convulsions (principal)
CPT/HCPCS: 95813

== ENCOUNTER 2024-07-09 06:31 | Emergency (ER) | payer OTHER, SELFPAY ==
[2024-07-09 06:36] VITALS: BP 189/118
[2024-07-09 06:37] VITALS: BP 181/121
[2024-07-09 06:47] VITALS: BP 145/91
[2024-07-09 06:53] LABS: Glucose - Point of Care 125 mg/dl (70-99)
[2024-07-09 07:00] VITALS: BP 163/105
[2024-07-09 07:08] LABS: % Basophils 0.3 % (0-2); % Eosinophils 0.6 % (0-6); % Immature Granulocytes 0.2 % (0-0.5); % Lymphocytes 33.3 % (20.5-51.1); % Monocytes 8.3 % (1.7-9.3); % Neutrophils 57.3 % (42.2-75.2); Absolute Lymphocytes 2.1 10^3/uL (1.2-3.4); Absolute Monocytes 0.5 10^3/uL (0.1-0.6); Absolute Neutrophils 3.6 10^3/uL (1.4-6.5); Hemoglobin 15.4 g/dL (12.0-16.0); Mean Corp Hgb Conc. 33.5 g/dL (33.0-37.0); Mean Corpuscular Volume 89.7 fL (81.0-99.0); Mean Platelet Volume 9.1 fL (7.4-10.4); Nucleated Red Blood Cells % 0 %; Platelet Count 263 10^3/uL (130-400); Red Blood Cell Count 5.13 10^6/uL (4.20-5.40); Red Cell Dist. Width 12.9 % (11.5-14.5); White Blood Cell Count 6.3 10^3/uL (4.8-10.8)
[2024-07-09 07:22] LABS: ALT (SGPT) 26 U/L (0-35); AST (SGOT) 22 U/L (14-36); Albumin 5.1 g/dl (3.5-5.0); Alkaline Phosphatase 94 U/L (38-126); Blood Urea Nitrogen 16 mg/dl (7-17); Carbon Dioxide 21 mmol/L (22-30); Chloride 104 mmol/L (98-107); Glucose 144 mg/dl (70-99); Potassium 3.8 mmol/L (3.5-5.1); Sodium 140 mmol/L (135-145); Total Bilirubin 1.1 mg/dl (0.2-1.3); Total Protein 7.9 g/dl (6.3-8.2); eGFR > 60.00
--- NOTE | 2024-07-09 07:24 | ED.GENMED ---
History of Present Illness
General
Chief Complaint: Seizure
Source: patient
Time Seen by Provider: 07/09/24 07:05
History of Present Illness
History of Present Illness:
69-year-old female presents to the emergency room complaining of headache. Headaches located in the frontal region and described as moderate in intensity. She has a history of a intracerebral hemorrhage as well as a history of nonconvulsive
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 She has been compliant with her Keppra. Her seizures were discovered after she developed aphasia and confusion. She has not had any of the symptoms. She does feel a little dizzy at times but is able to
ambulate without difficulty. No nausea or vomiting. She denies any focal weakness numbness or tingling.
Past History
Past History
ED Past Medical History: Other (Hypertension, migraine headaches)
Phy Exam
Physical Exam
Physical Exam:
General: Awake, Alert, Oriented X3. No acute distress.
Vitals: unremarkable
Head: Atraumatic
Eyes: Pupils equal, EOMI
Throat: Airway intact, no exudates
Neck: Trachea midline
Lungs: Clear and equal b/l
Heart: Regular rate, no murmurs
Abd: Soft, Nontender, No pulsatile mass
Neuro: Cranial nerves intact, muscle strength equal bilaterally, cerebellar exam normal
Skin: Warm, dry, no rash
Extremities: pulses equal b/l, no edema
Course
Orders/Labs/Results
Orders:
Orders
07/09/24 07:00
Complete Blood Count/With Diff Urgent
Comprehensive Metabolic Panel Urgent
07/09/24 07:24
CT Head W/o Iv Contrast Urgent
Comment:
Reason For Exam: headache
Diphenhydramine [Benadryl] 25 mg IV NOW STA
Metoclopramide [Reglan] 10 mg IV NOW STA
Abnormal Lab Results
07/09/24 07/09/24
06:52 07:00
Carbon Dioxide 21 L mmol/L
(22-30)
Glucose 144 H mg/dl
(70-99)
Albumin 5.1 H g/dl
(3.5-5.0)
POC Glucose 125 H mg/dl
(70-99)
07/09/24 07:00
07/09/24 07:00
Vital Signs
Initial and Last Documented VS:
Initial Vital Signs
Temp Pulse Resp BP Pulse Ox
98.0 F 76 18 189/118 98
07/09/24 06:36 07/09/24 06:36 07/09/24 06:36 07/09/24 06:36 07/09/24 06:36
Last Documented Vital Signs
Temp Pulse Resp BP Pulse Ox
97.9 F 78 15 140/83 96
07/09/24 06:49 07/09/24 09:45 07/09/24 09:45 07/09/24 09:00 07/09/24 09:45
MDM/Problems Addressed
Differential Diagnosis Includes:
Tension headache, migraine headache, bleed, sinusitis
MDM/Problems Addressed:
Patient presents with frontal headache. She has had no confusion, aphasia to suggest seizure activity. CT shows no acute abnormalities. She feels better after treatment of her headache. She did mention some floaters or flashes in her right eye.
Visual acuity is a bit difficult to assess as the patient has some difficulty identifying letters since she has a previous stroke. However it appears her visual acuity is good release 20/40 she states she can see letters clearly down to that level.
Patient can follow-up with Dr. Mcfarland for evaluation of her visual complaints. Patient has 'eye doctors' at 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
*Radiology
Radiology exam reviewed: radiology read reviewed
*Pulse Oximetry
Patient hypoxic: no
*Critical Care Note
Total Time (30-74mins, 75-104mins- exclusive of procedures): Not Applicable
ED Attending Note
-
Portions of this chart may have been created with voice recognition software.� Occasional wrong word or��sound alike� substitutions may have occurred due to the inherent limitations of voice recognition software.
Discharge Plan
Departure
Patient Disposition: Home (Routine Discharge)
Date of Disposition: 07/09/24
Time of Disposition: 09:32
Patient with high blood pressure during this ER visit?: No
Condition: Good
Discharge Problem:
Headache, Floaters in visual field
Prescriptions:
No Action
hydrochlorothiazide 25 mg tablet
25 mg PO DAILY
losartan 100 mg tablet
100 mg PO DAILY
diltiazem HCl 360 MG capsule,extended release 24hr
360 mg PO DAILY
levetiracetam [Keppra] 1,000 mg tablet
1,000 mg PO BID Qty: 60 0RF
acetaminophen 325 MG tablet
650 mg PO Q6HPRN PRN (Reason: mild pain) 0RF
Referrals:
Yuliet Mcfarland MD [Active] -
Marty Dunlap DO [Family Provider] -
Activity Restrictions/Additional Instructions:
I spoke with your eye doctor's office. Their fast food restaurant manager primarily deals with oculoplastics issues. Therefore I have given you contact information for Dr. Mcfarland who is our fast food restaurant manager on-call.
Interventions
Interventions:
*Risk Screen - Suicide Last Done: 07/09/24 06:32
*General Assessment Last Done: 07/09/24 06:32
*Neglect/Abuse Screening Last Done: 07/09/24 06:32
*ED- Fall Risk Assessment Last Done: 07/09/24 07:30
*ED COVID-19 Vaccine History Last Done: 07/09/24 06:32
*Nursing Disposition Last Done: 07/09/24 10:13
ED- Cardiac Assessment Last Done: 07/09/24 07:30
ED- Neurological Assessment Last Done: 07/09/24 07:30
ED- Pulmonary Assessment Last Done: 07/09/24 07:30
Discharge Date and Time
Discharge Date/Time: 07/09/24 10:17
Print Language: FRISIAN
[2024-07-09] MEDS: BENADRYL 25 MG IV (07:48)
[2024-07-09] MEDS: REGLAN 10 MG IV (07:49)
[2024-07-09 08:08] VITALS: BP 137/87
[2024-07-09 09:00] VITALS: BP 140/83
== END 2024-07-09 10:17 | disposition home or self-care (01) ==
LOC: EMR 06:31
PROVIDERS: EMERGENCY PHYSICIAN Emergency Medicine; FAMILY PHYSICIAN Family Medicine
DX: R51.9 Headache, unspecified (principal); H43.391 Other vitreous opacities, right eye
CPT/HCPCS: 99284; 96374; 96375; 70450; 80053; 82962; 85025